=== PATIENT | male | born 1975 | race Caucasian/White ===

== ENCOUNTER 2017-03-18 10:41 | Emergency (ER) | payer MEDICAID ==
[~2017-03-18] VITALS: Ht 170.2 cm; Wt 86.0 kg
[2017-03-18] MEDS ORDERED: BARIUM SULFATE 0.1% SUSPENSION 450 ML BOTTLE PO ONE (11:30)
[2017-03-18] MEDS ORDERED: MORPHINE SULFATE 4 MG/ML SYRINGE IVP ONE (11:30)
[2017-03-18] MEDS ORDERED: ONDANSETRON HCL 4 MG/2 ML VIAL IVP ONE (11:30)
[2017-03-18] MEDS ORDERED: SODIUM CHLORIDE 0.9% 1,000 ML IV ONE (11:30)
[2017-03-18 11:41] LABS: BASOPHILS # (AUTO) 0.01 K/uL (0.00-0.20); BASOPHILS % (AUTO) 0.1 % (0.0-2.0); EOSINOPHILS # (AUTO) 0.59 K/uL (0.00-0.70); EOSINOPHILS % (AUTO) 7.22 % (1.0-6.0); HEMATOCRIT 43.7 % (41-53); HEMOGLOBIN 15.4 g/dL (13.5-17.5); LYMPHOCYTES # (AUTO) 1.9 K/uL (1.0-4.8); LYMPHOCYTES % (AUTO) 22.7 % (22.0-44.0); MEAN CORPUSCULAR HEMOGLOBIN 30.9 pg (26.0-34.0); MEAN CORPUSCULAR HGB CONC 35.3 G/dL (31.0-37.0); MEAN CORPUSCULAR VOLUME 88 fL (80-100); MONOCYTES # (AUTO) 0.6 K/uL (0.1-1.0); NEUTROPHILS # (AUTO) 5.1 K/uL (1.8-7.7); NEUTROPHILS % (AUTO) 62.9 % (40.0-70.0); PLATELET COUNT (AUTO) 256 K/uL (150-450); RED BLOOD CELL COUNT(AUTO) 4.98 MIL/uL (4.50-5.90); RED CELL DISTRIBUTION WIDTH 12.8 % (11.5-14.5); WHITE BLOOD COUNT (AUTO) 8.1 K/uL (4.5-11.0)
[2017-03-18 11:50] LABS: ANION GAP 10 mmol/L (8-16); CALCIUM, TOTAL 8.9 mg/dL (8.8-10.5); CARBON DIOXIDE 27 mmol/L (22-29); CHLORIDE 105 mmol/L (98-107); CREATININE 0.93 mg/dL (0.60-1.30); GLOMERULAR FILTR. RATE CALC > 60 mL/min (>60); POTASSIUM 3.2 mmol/L (3.5-5.1); PROTHROMBIN TIME 10.4 SEC (9.4-11.6); SODIUM SERUM 142 mmol/L (136-145); UREA NITROGEN, BLOOD 11 mg/dL (7-18)
[2017-03-18 11:55] LABS: ALANINE AMINOTRANSFERASE 69 U/L (12-78); ALBUMIN 4.1 g/dL (3.4-5.0); ASPARTATE AMINOTRANSFERASE 28 U/L (15-37); BILIRUBIN,TOTAL 0.5 mg/dL (0.1-1.0); TOTAL PROTEIN, SERUM 7.5 g/dL (6.4-8.2)
[2017-03-18] MEDS ORDERED: LABETALOL HCL 5 MG/ML 20 ML VIAL IVP ONE ×2 (12:15→14:00)
[2017-03-18] MEDS ORDERED: IOVERSOL 350 MG/ML 100 ML VIAL ONE (13:06)
[2017-03-18] MEDS ORDERED: SODIUM CHLORIDE 0.9% 100 ML ONE (13:06)
[2017-03-18] MEDS ORDERED: POTASSIUM CHLORIDE 20 MEQ ER TABLET PO ONE (13:15)
[2017-03-18] MEDS ORDERED: METOCLOPRAMIDE HCL 5 MG/ML 2 ML VIAL IVP ONE (13:45)
[2017-03-18 15:34] VITALS: BP 159/99
== END 2017-03-18 15:41 | disposition home or self-care (01) ==
LOC: EMS 10:45
DX: K85.90 Acute pancreatitis without necrosis or infection, unspecified (principal)
CPT/HCPCS: 36415; 74177; 80053; 83690; 85025; 85610; 96361; 96374; 96375; 96376; 99285; J2270; J2405; J3490; J7030; J7050; Q9967; Z7610

== ENCOUNTER 2021-06-21 08:38 | Inpatient (IN) | payer MEDICAID ==
[~2021-06-21] VITALS: Ht 175.3 cm; Wt 88.5 kg
[2021-06-21] MEDS ORDERED: ALBUTEROL SULFATE HFA 90 MCG/PUFF 8 GM INHALER IH ONE (09:15)
[2021-06-21] MEDS ORDERED: DEXAMETHASONE SOD PHOS 4 MG/ML VIAL IVP ONE (09:15)
[2021-06-21 09:16] LABS: BASOPHILS % (AUTO) 0.5 % (0.0-2.0); EOSINOPHILS % (AUTO) 0.1 % (1.0-6.0); HEMATOCRIT 40.1 % (41-53); HEMOGLOBIN 13.8 g/dL (13.5-17.5); LYMPHOCYTES # (AUTO) 0.6 K/uL (1.0-4.8); LYMPHOCYTES % (AUTO) 4.8 % (22.0-44.0); MEAN CORPUSCULAR HEMOGLOBIN 30.1 pg (26.0-34.0); MEAN CORPUSCULAR HGB CONC 34.4 G/dL (31.0-37.0); MEAN CORPUSCULAR VOLUME 88 fL (80-100); MONOCYTES # (AUTO) 0.7 K/uL (0.1-1.0); MONOCYTES % (AUTO) 5.8 % (2.0-9.0); NEUTROPHILS # (AUTO) 10.5 K/uL (1.8-7.7); PLATELET COUNT (AUTO) 302 K/uL (150-450); RED BLOOD CELL COUNT(AUTO) 4.58 MIL/uL (4.50-5.90); RED CELL DISTRIBUTION WIDTH 12.7 % (11.5-14.5)
[2021-06-21 09:17] LABS: NEUTROPHILS % (AUTO) 88.8 % (40.0-70.0)
[2021-06-21 09:25] LABS: ANION GAP 8 mmol/L (8-16); CARBON DIOXIDE 26 mmol/L (22-29); CHLORIDE 100 mmol/L (98-107); CREATININE 0.78 mg/dL (0.60-1.30); GLOMERULAR FILTR. RATE CALC > 60 mL/min (>60); GLUCOSE,RANDOM 125 mg/dL (70-110); POTASSIUM 3.8 mmol/L (3.5-5.1); SODIUM SERUM 134 mmol/L (136-145); UREA NITROGEN, BLOOD 14 mg/dL (7-18)
[2021-06-21 09:29] LABS: INFLUENZA TYPE A NEGATIVE FOR TYPE A (NEGATIVE); INFLUENZA TYPE B NEGATIVE FOR TYPE B (NEGATIVE)
[2021-06-21] MEDS ORDERED: CefTRIAXone 1 GM/DEXTROSE 50 ML IV ONE (09:30)
[2021-06-21] MEDS ORDERED: AZITHROMYCIN 500 MG/NS 250 ML IV ONE (09:30)
[2021-06-21] MEDS ORDERED: ACETAMINOPHEN 500 MG TABLET PO ONE (09:30)
[2021-06-21 09:38] LABS: B-TYPE NATRIURETIC PEPTIDE 7 pg/mL (0-100)
[2021-06-21 09:39] LABS: D-DIMER 0.64 mg/L FEU (0.00-0.50); PROTHROMBIN TIME 10.9 SEC (9.4-11.6)
[2021-06-21 10:07] LABS: ALANINE AMINOTRANSFERASE 45 U/L (12-78); ALBUMIN 3.1 g/dL (3.4-5.0); ALKALINE PHOSPHATASE 70 U/L (46-116); ASPARTATE AMINOTRANSFERASE 42 U/L (15-37); BILIRUBIN,TOTAL 0.7 mg/dL (0.1-1.0); C-REACTIVE PROTEIN QUANT 13.59 mg/dL (0.00-0.30); CREATINE KINASE, TOTAL ONLY 144 U/L (39-308); FERRITIN 1410 ng/mL (26-388); LACTATE DEHYDROGENASE 359 U/L (85-227); TOTAL PROTEIN, SERUM 7.8 g/dL (6.4-8.2)
[2021-06-21] MEDS ORDERED: ACETAMINOPHEN 325 MG TABLET PO PRN (10:30)
[2021-06-21] MEDS ORDERED: ALBUTEROL SULFATE HFA 90 MCG/PUFF 8 GM INHALER IH PRN (10:30)
[2021-06-21] MEDS ORDERED: ONDANSETRON HCL 4 MG/2 ML VIAL IVP PRN (10:30)
[2021-06-21] MEDS ORDERED: REMDESIVIR 200 MG in SODIUM CHLORIDE 0.9% 250 ML IV ONE (11:00)
[2021-06-21] MEDS: HEPARIN SODIUM,PORCINE 5,000 UNITS/ML VIAL SQ SCH (15:24)
[2021-06-21 16:32] VITALS: BP 128/89
[2021-06-21 19:51] VITALS: BP 137/89
[2021-06-21] MEDS: FAMOTIDINE 20 MG TABLET PO SCH (20:23)
[2021-06-21] MEDS: DOCUSATE SODIUM 100 MG CAPSULE PO SCH (20:23)
[2021-06-21] MEDS: BENZONATATE 100 MG CAPSULE PO PRN (20:24)
[2021-06-22] VITALS (7 sets, daily range): BP systolic 114–132; BP diastolic 64–91
[2021-06-22] MEDS: HEPARIN SODIUM,PORCINE 5,000 UNITS/ML VIAL SQ SCH ×4 (00:19→23:28)
[2021-06-22] MEDS ORDERED: SODIUM CHLORIDE 0.9% 0 ML ONE (01:30)
[2021-06-22] MEDS ORDERED: SODIUM CHLORIDE 0.9% 100 ML ONE (01:31)
[2021-06-22] MEDS: DOCUSATE SODIUM 100 MG CAPSULE PO SCH ×2 (08:13→19:54)
[2021-06-22] MEDS: FAMOTIDINE 20 MG TABLET PO SCH ×2 (08:13→19:54)
[2021-06-22] MEDS: DEXAMETHASONE SOD PHOS 4 MG/ML VIAL IVP SCH (08:13)
[2021-06-22] MEDS: REMDESIVIR 100 MG in SODIUM CHLORIDE 0.9% 250 ML IV SCH (10:43)
[2021-06-22] MEDS: BENZONATATE 100 MG CAPSULE PO PRN (23:28)
[2021-06-23 04:16] VITALS: BP 122/72
[2021-06-23 06:09] LABS: ALANINE AMINOTRANSFERASE 51 U/L (12-78); ALBUMIN 2.5 g/dL (3.4-5.0); ALKALINE PHOSPHATASE 64 U/L (46-116); ANION GAP 5 mmol/L (8-16); ASPARTATE AMINOTRANSFERASE 38 U/L (15-37); BILIRUBIN,TOTAL 0.4 mg/dL (0.1-1.0); C-REACTIVE PROTEIN QUANT 5.56 mg/dL (0.00-0.30); CALCIUM, TOTAL 9.1 mg/dL (8.8-10.5); CARBON DIOXIDE 31 mmol/L (22-29); CHLORIDE 104 mmol/L (98-107); CREATININE 0.81 mg/dL (0.60-1.30); GLOMERULAR FILTR. RATE CALC > 60 mL/min (>60); GLUCOSE,RANDOM 122 mg/dL (70-110); POTASSIUM 4.5 mmol/L (3.5-5.1); SODIUM SERUM 140 mmol/L (136-145); TOTAL PROTEIN, SERUM 6.6 g/dL (6.4-8.2); UREA NITROGEN, BLOOD 25 mg/dL (7-18)
[2021-06-23 07:58] VITALS: BP 139/69
[2021-06-23] MEDS: DOCUSATE SODIUM 100 MG CAPSULE PO SCH ×2 (08:00→21:29)
[2021-06-23] MEDS: DEXAMETHASONE SOD PHOS 4 MG/ML VIAL IVP SCH (08:00)
[2021-06-23] MEDS: FAMOTIDINE 20 MG TABLET PO SCH ×2 (08:00→21:29)
[2021-06-23] MEDS: HEPARIN SODIUM,PORCINE 5,000 UNITS/ML VIAL SQ SCH ×3 (08:00→23:37)
[2021-06-23] MEDS: REMDESIVIR 100 MG in SODIUM CHLORIDE 0.9% 250 ML IV SCH (10:39)
[2021-06-23 11:55] VITALS: BP 132/86
[2021-06-23 16:07] VITALS: BP_SYST 125; BP_SYST 144; BP_DIAS 80; BP_DIAS 94
[2021-06-23 19:46] VITALS: BP 149/96
[2021-06-24 00:06] VITALS: BP 129/81
[2021-06-24 05:12] VITALS: BP 140/86
[2021-06-24 06:09] LABS: ALANINE AMINOTRANSFERASE 55 U/L (12-78); ALBUMIN 2.6 g/dL (3.4-5.0); ALKALINE PHOSPHATASE 62 U/L (46-116); ANION GAP 5 mmol/L (8-16); ASPARTATE AMINOTRANSFERASE 38 U/L (15-37); BILIRUBIN,TOTAL 0.4 mg/dL (0.1-1.0); CALCIUM, TOTAL 9.1 mg/dL (8.8-10.5); CARBON DIOXIDE 30 mmol/L (22-29); CHLORIDE 109 mmol/L (98-107); CREATININE 0.85 mg/dL (0.60-1.30); GLOMERULAR FILTR. RATE CALC > 60 mL/min (>60); GLUCOSE,RANDOM 108 mg/dL (70-110); POTASSIUM 4.6 mmol/L (3.5-5.1); SODIUM SERUM 144 mmol/L (136-145); TOTAL PROTEIN, SERUM 6.7 g/dL (6.4-8.2); UREA NITROGEN, BLOOD 20 mg/dL (7-18)
[2021-06-24 08:28] VITALS: BP 138/74
[2021-06-24] MEDS: DOCUSATE SODIUM 100 MG CAPSULE PO SCH ×2 (08:39→20:05)
[2021-06-24] MEDS: FAMOTIDINE 20 MG TABLET PO SCH ×2 (08:39→20:05)
[2021-06-24] MEDS: HEPARIN SODIUM,PORCINE 5,000 UNITS/ML VIAL SQ SCH ×3 (08:41→23:25)
[2021-06-24] MEDS: DEXAMETHASONE SOD PHOS 4 MG/ML VIAL IVP SCH (08:41)
[2021-06-24] MEDS: REMDESIVIR 100 MG in SODIUM CHLORIDE 0.9% 250 ML IV SCH (10:57)
[2021-06-24 12:27] VITALS: BP 115/72
[2021-06-24 15:18] VITALS: BP 115/65
[2021-06-24] MEDS: BENZONATATE 100 MG CAPSULE PO PRN (15:53)
[2021-06-24 20:00] VITALS: BP 130/68
[2021-06-25 04:00] VITALS: BP 140/89
[2021-06-25 06:20] LABS: ANION GAP 3 mmol/L (8-16); CARBON DIOXIDE 31 mmol/L (22-29); CHLORIDE 106 mmol/L (98-107); CREATININE 0.85 mg/dL (0.60-1.30); GLUCOSE,RANDOM 97 mg/dL (70-110); POTASSIUM 4.5 mmol/L (3.5-5.1); SODIUM SERUM 140 mmol/L (136-145); UREA NITROGEN, BLOOD 19 mg/dL (7-18)
[2021-06-25 06:21] LABS: ALANINE AMINOTRANSFERASE 60 U/L (12-78); ALBUMIN 2.8 g/dL (3.4-5.0); ALKALINE PHOSPHATASE 66 U/L (46-116); ASPARTATE AMINOTRANSFERASE 34 U/L (15-37); BILIRUBIN,TOTAL 0.4 mg/dL (0.1-1.0); CALCIUM, TOTAL 9.3 mg/dL (8.8-10.5); GLOMERULAR FILTR. RATE CALC > 60 mL/min (>60); TOTAL PROTEIN, SERUM 6.9 g/dL (6.4-8.2)
[2021-06-25 08:00] VITALS: BP 114/74
[2021-06-25] MEDS: DOCUSATE SODIUM 100 MG CAPSULE PO SCH (08:37)
[2021-06-25] MEDS: FAMOTIDINE 20 MG TABLET PO SCH (08:38)
[2021-06-25] MEDS: DEXAMETHASONE SOD PHOS 4 MG/ML VIAL IVP SCH (08:38)
[2021-06-25] MEDS: HEPARIN SODIUM,PORCINE 5,000 UNITS/ML VIAL SQ SCH (08:39)
[2021-06-25] MEDS: REMDESIVIR 100 MG in SODIUM CHLORIDE 0.9% 250 ML IV SCH (09:33)
== END 2021-06-25 16:35 | disposition home or self-care (01) | DRG 137 ==
LOC: EDUNIT# 08:38 → EMS 08:42 → 5N 15:14 → 5S 06-22 17:21
PROVIDERS: ADMIT Internal Medicine; ATTEND Internal Medicine
PROC: XW033E5 Introduction of Remdesivir Anti-infective into Peripheral Vein, Percutaneous Approach, New Technology Group 5 (ICD-10-PCS; principal; 2021-06-21)
DX: U07.1 COVID-19 (principal); J96.01 Acute respiratory failure with hypoxia; J12.82 Pneumonia due to coronavirus disease 2019; Z20.822 Contact with and (suspected) exposure to COVID-19; R43.8 Other disturbances of smell and taste; Z87.891 Personal history of nicotine dependence; Z82.49 Family history of ischemic heart disease and other diseases of the circulatory system
CPT/HCPCS: 71045; 80053; 82550; 82728; 83605; 83615; 83880; 84145; 84484; 85025; 85379; 85384; 85610; 85730; 86140; 87040; 87804; 93005; 94640; 99291; J0456; J0696; J1100; J1644; J3535; J7050; Q9967; 36415-L1; 36415-TC; U0003